=== PATIENT | female | born 1950 | race Caucasian/White ===

== ENCOUNTER 2020-03-03 14:49 | Emergency (ER) | payer MEDICARE ==
[~2020-03-03] VITALS: Ht 152.4 cm; Wt 76.2 kg
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
[~2020-03-03 14:49] MED LIST: EEMT HS 0.625-1 EACH PO; EFFEXOR XR150 MG PO; HYDROCHLOROTHIA25 M1 PO; LEVOTHYROXIN0.125 M1 PO; OXYCODONE HCL 55 MG PO; OXYCONTIN10 M1 PO; STOOL SOFTENER1 EAC2 PO; XARELTO10 MG PO
[2020-03-03] MEDS ORDERED: PROTONIX 20 MG20 MG PO (15:08)
[2020-03-03 15:25] LABS: ABSOLUTE BASOPHILS 0.1 thou/uL (0.0-0.2); ABSOLUTE EOSINOPHILS 0.3 thou/uL (0.0-0.7); ABSOLUTE LYMPHOCYTES 2.3 thou/uL (0.8-5.3); ABSOLUTE MONOCYTES 0.7 thou/uL (0.0-1.2); ABSOLUTE NEUTROPHILS 4.6 thou/uL (1.6-8.1); BASOPHILS 1.3 %; EOSINOPHILS 3.7 %; HEMATOCRIT 39.7 % (37.0-47.0); HEMOGLOBIN 13.4 gm/dL (12.0-15.0); LYMPHOCYTES 28.3 %; MCH 29.6 pg (26.0-34.0); MCHC 33.7 g/dL (28.0-37.0); MCV 88.1 fL (80.0-100.0); MONOCYTES 8.7 %; MPV 7.8 fl. (7.2-11.1); NUCLEATED RBCS 0 /100WBC; PLATELET COUNT* 258 thou/uL (150-400); RBC 4.51 mil/uL (4.20-5.00); RDW-CV 13.7 % (10.5-14.5); WBC 7.9 thou/uL (4.0-11.0)
[2020-03-03 15:32] LABS: POTASSIUM 3.4 mmol/L (3.5-5.1)
[2020-03-03 15:37] LABS: ALBUMIN 3.6 g/dL (3.4-5.0); TOTAL BILIRUBIN 0.1 mg/dL (<0.1-1.0); TOTAL PROTEIN 7.3 g/dL (6.4-8.2)
[2020-03-03] MEDS ORDERED: TRAMADOL 50 MG50 MG PO (16:01)
[2020-03-03 16:18] VITALS: BP 118/68
--- NOTE | 2020-03-04 16:29 | EKG ---
[place] [address] ELECTROCARDIOGRAM REPORT Name: LUIS ANGEL GORDON Room: [facility]#: [id number] Admission: 03/03/20 Attend Phys: Discharge: 03/03/20 Date of : 52 Date of Service: 03/03/20 1513 Report #: [id number] THIS REPORT FOR: //name// [facility] ED Test Date: 2020-03-03 Test Time: 15:13:11 Pat Name: LUIS ANGEL GORDON Department: Room: Gender: F Curing Room Supervisor: [facility] : 1950 Requested By: Eliane Figueroa Order Number: [id number] MD: Preston Stewart Measurements Intervals [place] Rate: 77 P: -31 MI: 163 QRS: -30 QRSD: 92 T: 6 QT: 402 QTc: 455 Interpretive Statements Sinus rhythm Inferior infarct, old Anterior infarct, old Compared to ECG 08/22/2011 15:45:56 Prolonged QT interval no longer present Myocardial infarct finding still present Electronically Signed On 03-04-2020 16:28:56 AUCTION ASSISTANT by Preston Stewart [email or web address] <ELECTRONICALLY SIGNED> By: Preston Stewart MD, MERGED WITH [facility] 03/04/20 1628 1513 1513 Preston Stewart MD, MERGED WITH [facility] /EPI
== END 2020-03-03 16:19 | disposition home or self-care (01) ==
LOC: M.ERS 14:49
PROVIDERS: Nurse Practitioner Family
DX: S16.1XXA Strain of muscle, fascia and tendon at neck level, initial encounter (principal); S80.02XA Contusion of left knee, initial encounter; S20.219A Contusion of unspecified front wall of thorax, initial encounter; I10 Essential (primary) hypertension; E03.9 Hypothyroidism, unspecified; Z90.710 Acquired absence of both cervix and uterus; Z79.899 Other long term (current) drug therapy; V49.49XA Driver injured in collision with other motor vehicles in traffic accident, initial encounter; Y93.89 Activity, other specified; Y92.410 Unspecified street and highway as the place of occurrence of the external cause; Y99.8 Other external cause status